=== PATIENT | male | born 1955 | race Caucasian/White ===

== ENCOUNTER 2024-03-07 14:45 | Observation (INO) ==
[2024-03-07 15:31] LABS: ABS Lymphocytes 1.2 10^3/uL (1.0-4.8); ABS Monocytes 0.5 10^3/uL (0.0-1.1); ABS Neutrophils 8.1 10^3/uL (1.5-7.6); Eosinophil % 0.4 %; Hematocrit 44.7 % (38-53); Lymphocyte % 12.1 %; Mean Corpuscular Hemoglobin 32.1 pg (27-33); Mean Corpuscular Hgb Conc 33.4 g/dL (31-36); Mean Corpuscular Volume 95.9 fL (80-97); Mean Platelet Volume 7.4 fL (7.5-11.2); Nucleated Red Blood Cells % 0.1 %/100WBC (0.0-0.8); Platelet Count 228 10^3/uL (150-450); Red Blood Count 4.66 10^6/uL (4.06-5.63); White Blood Count 9.8 10^3/uL (3.6-10.2)
[2024-03-07 15:53] LABS: High Sens Troponin Baseline 33 pg/mL (<20)
[2024-03-07 15:54] LABS: INR 1.05 (0.85-1.14)
[2024-03-07 16:52] LABS: ALT 18 U/L (7-52); Albumin 4.1 g/dL (3.5-5.7); Albumin/Globulin Ratio 1.6 (1-3); Alkaline Phosphatase 111 U/L (35-149); Anion Gap 13 mmol/L (2-16); Blood Urea Nitrogen 20 mg/dL (6-24); CO2 Carbon Dioxide 16 mmol/L (22-32); Calcium 9.2 mg/dL (8.6-10.3); Chloride 108 mmol/L (101-111); Creatinine, Serum 1.55 mg/dL (0.67-1.17); Globulin 2.6 g/dL (2-4); Glucose 162 mg/dL (70-100); Sodium 137 mmol/L (135-145); Total Bilirubin 1.1 mg/dL (0.2-1.0); Total Protein 6.7 g/dL (6.4-8.9); eGFR CKD-EPI 48.2 (>60)
[2024-03-07 17:06] LABS: High Sensitivity Troponin 1 Hr 50 pg/mL (<20)
[2024-03-07] MEDS: Tetan/Diph/Pertus SYR(Tdap) 0.5 ML SYR(BOOSTRIX) use SYR contains LATEX IM ONE (18:38)
[2024-03-07] MEDS ORDERED: Sulfur Hexaflouride MICROSPHR 25 MG VIAL IV PRN (21:04)
[2024-03-07 21:40] LABS: Creatine Kinase 162 U/L (10-223)
[2024-03-08 08:04] LABS: Calcium 8.8 mg/dL (8.6-10.3); Creatinine, Serum 1.29 mg/dL (0.67-1.17); Magnesium 2.1 mg/dL (1.9-2.7); Potassium 4.1 mmol/L (3.5-5.0)
[2024-03-08] MEDS: Enoxaparin 40 MG/0.4 ML SYR SUBCUT SCH (10:01)
[2024-03-08] MEDS ORDERED: Lidocaine 1% MPF 5 ML VIAL ONE (15:29)
[2024-03-08 15:48] VITALS: BP 126/75
== END 2024-03-08 18:00 | disposition home or self-care (01) ==
LOC: EDHOLD 14:45 → ED 14:45 → SUATTDRO 18:53 → MEDTELE 03-08 02:49
PROVIDERS: ADMIT Internal Medicine; ATTEND Internal Medicine